=== PATIENT | male | born 1990 | race African-American/Black ===

== ENCOUNTER 2017-09-08 16:20 | Emergency (ER) | payer SELFPAY ==
[~2017-09-08] VITALS: Ht 172.7 cm; Wt 70.5 kg
[2017-09-08 16:26] VITALS: BP 113/66; PULSE 72; TEMP 99.4
[2017-09-08] MEDS ORDERED: POLYMYXIN B/TRIMETH OD (17:10)
== END 2017-09-08 17:15 | disposition home or self-care (01) ==
LOC: COL.ER 16:20
DX: S05.01XA Injury of conjunctiva and corneal abrasion without foreign body, right eye, initial encounter (principal)

== ENCOUNTER 2017-11-11 11:45 | Emergency (ER) | payer SELFPAY ==
[~2017-11-11] VITALS: Ht 175.3 cm; Wt 72.7 kg
[~2017-11-11 11:45] MED LIST: ARTIFICIAL TEAR OP; POLYMYXIN B/TRIMETH OD
[2017-11-11 12:05] VITALS: BP 137/63; PULSE 94; TEMP 100.5
[2017-11-11 13:41] LABS: INFLUENZA A NEGATIVE; INFLUENZA B NEGATIVE
== END 2017-11-11 14:13 | disposition home or self-care (01) ==
LOC: COL.ER 11:45
PROVIDERS: Physician Assistant
DX: J11.1 Influenza due to unidentified influenza virus with other respiratory manifestations (principal); F17.210 Nicotine dependence, cigarettes, uncomplicated